=== PATIENT | male | born 1950 | race Caucasian/White ===

== ENCOUNTER 2017-04-29 22:34 | Emergency (ER) | payer OTHER, MEDICARE ==
[2017-04-29 22:50] VITALS: BP 128/71; PULSE 66; TEMP 97.7; BMI 25.7
--- NOTE | 2017-04-29 22:56 | PDOC ---
History of Present Illness - General Chief Complaint: Pain, Acute Stated Complaint: ABD PAIN Time Seen by Provider: 04/29/17 22:35 History Source: Patient Exam Limitations: No Limitations - History of Present Illness Initial Comments: 04/29/17 23:49 This is a 59-year-old male who is morbidly obese comes in complaining of abdominal pain. Patient describes abdominal pain as episodes of severe crampy lower abdominal pain. Patient said that when the pain comes it makes him feel like he has to have a bowel movement. Patient said he has had approximately 6 loose bowel movements but then took an Imodium and has not had any since then. Patient denies any nausea or vomiting. Patient denies any fevers or chills. Patient said that he also feels like he needs to urinate but is only able to urinate a small amount in spite of having drank a fair amount of water. PAST MEDICAL HISTORY: Hypertension, high cholesterol, BPH PAST SURGICAL HISTORY: no significant history FAMILY HISTORY: no pertinant history SOCIAL HISTORY: Pt lives with family and is employed. MEDICATIONS: reviewed ALLERGIES: As per nursing notes Review of Systems General: No fevers or chills, no weakness, no weight loss HEENT: No change in vision. No sore throat,. No ear pain CardioVascular: No chest pain or shortness of breath Respiratory:No cough, or wheezing. Gastrointestinal: no nausea, vomitting, diarrhea or constipation, No rectal bleeding, +abdominal pain Genitourinary: No dysuria, hematuria, or frequency Musculoskeletal: No joint or muscle pain or swelling Neurologic: No headache, vertigo, dizziness or loss of consciousness Psychiatric: nor depression Skin: No rashes or easy bruising Endocrine: no increased thirst or abnormal weight change Allergic: no skin or latex allergy All other systems reviewed and normal Exam: General: Well-nourished well-developed individual, no acute distress HEENT: Throat: Normal, tonsils normal, no erythema or exudate Neck: Supple, no meningeal signs, no lymphadenopathy Eyes::Pupils equal reactive and round, extraocular motion intact Chest: Nontender to palpation Cardiac: S1-S2 normal, regular rate and rhythm, no murmurs rubs or gallops Respiratory: Lungs clear to auscultation bilateral Abdomen: Soft, sl distended, normal bowel sounds, nontender to palpation diffusely Extremities: Warm, dry, no cyanosis, clubbing, or edema Skin: No rashes Neuro: Alert and oriented x3, nonfocal exam, grossly intact, normal gait Psych: Normal mood and affect Patient's CAT scan was unremarkable with the exception of a markedly dilated bladder with hydroureter and hydronephrosis. Blood work was otherwise unremarkable with normal kidney function. Assessment and plan: This is a 67-year-old male who comes in complaining of lower abdominal pain. Patient had a workup that revealed a markedly distended bladder with hydroureter and hydronephrosis. Patient had a Simpson placed with approximately 1800 mL of urine drained. Patient started on Cipro to prevent a urinary tract infection as he will have an indwelling Simpson and Simpson was put to his leg bag. Patient has an appointment with his primary care doctor in the morning. Past History - Past Medical History Allergies/Adverse Reactions: Allergies Allergy/AdvReac Type Severity Reaction Status Date / Time No Known Allergies Allergy Unverified 04/29/17 22:35 Home Medications: Ambulatory Orders Alendronate Na [Fosamax] 70 mg PO Q7D 04/29/17 Atorvastatin Ca [Lipitor] 20 mg PO HS 04/29/17 Bupropion HCl [Bupropion Xl] 375 mg PO DAILY 04/29/17 Diltiazem Cd [Cardizem Cd -] 240 mg PO DAILY 04/29/17 Lamotrigine 100 mg PO BID 04/29/17 Montelukast Na [Singulair -] 10 mg PO HS 04/29/17 Multivitamins [Tab-A-Vit -] 1 tab PO DAILY 04/29/17 Tamsulosin HCl [Flomax] 0.4 mg PO DAILY 04/29/17 Vit C/Vit E AC/Lut/Copper/Zinc [Preservision Softgel] 1 each PO DAILY 04/29/17 Zolpidem Tartrate [Ambien Cr] 12.5 mg PO HS 04/29/17 - Psycho/Social/Smoking Cessation Hx Suicidal Ideation: No Smoking History: Former smoker Have you smoked in the past 12 months: No Information on smoking cessation initiated: Yes *Physical Exam - Vital Signs Last Vital Signs Temp Pulse Resp BP Pulse Ox 97.7 F 66 16 128/71 97 04/29/17 22:46 04/29/17 22:46 04/29/17 22:46 04/29/17 22:46 04/29/17 22:46 ED Treatment Course - LABORATORY CBC & Chemistry Diagram: 04/30/17 00:05 04/30/17 00:05 *DC/Admit/Observation/Transfer Diagnosis at time of Disposition: Acute retention of urine Hydronephrosis Qualifiers: Hydronephrosis type: unspecified Qualified Code(s): N13.30 - Unspecified hydronephrosis - Discharge Dispostion Disposition: HOME Condition at time of disposition: Stable - Patient Instructions Additional Instructions: Leave the Simpson in place empty the leg bag as needed. Keep your appointment with Dr. Evans in the morning. Return to the emergency department immediately with ANY new, persistent or worsening symptoms. Continue any medications as previously prescribed by your physician. You should follow up with your primary doctor as soon as possible regarding today's emergency department visit. . Please make sure your doctor reviews the results of your emergency evaluation. Thank you for coming to the Emergency Department today for your care. It was a pleasure to see you today. Please note that your evaluation is INCOMPLETE until you follow-up with your doctor.
[2017-04-29] MEDS ORDERED: SIMETHICONE 80 MG TAB.CHEW (FP) PO STA (23:25)
[2017-04-29] MEDS ORDERED: HYOSCYAMINE SULFATE 0.125 MG *ODT PO ONE (23:26)
[2017-04-29] MEDS ORDERED: HYOSCYAMINE SULFATE 0.125 MG *ODT ONE (23:39)
[2017-04-29] MEDS ORDERED: SIMETHICONE 80 MG TAB.CHEW (FP) ONE (23:39)
[2017-04-30 01:28] LABS: BASOPHIL 0.7 % (0-2.0); MCH 29.9 pg (25.7-33.7); MCHC 32.7 g/dl (32.0-35.9); MEAN CELL VOLUME 91.4 fl (80-96); MEAN PLT VOLUME 9.2 fl (7.5-11.1); NEUTROPHILS 76.4 % (42.8-82.8); PLATELET COUNT 277 K/MM3 (134-434); RDW 14.1 % (11.9-15.9); WHITE BLOOD COUNT 12.1 K/mm3 (4.0-10.0)
[2017-04-30 01:32] LABS: URINE APPEARANCE CLEAR; URINE BILIRUBIN NEGATIVE (NEGATIVE); URINE BLOOD NEGATIVE (NEGATIVE); URINE COLOR STRAW; URINE GLUCOSE (UA) NEGATIVE (NEGATIVE); URINE KETONE NEGATIVE (NEGATIVE); URINE LEUK ESTERASE NEGATIVE (NEGATIVE); URINE NITRITE NEGATIVE (NEGATIVE); URINE PROTEIN NEGATIVE (NEGATIVE); URINE UROBILINOGEN NEGATIVE E.U./dl (0.2-1.0)
[2017-04-30 01:51] LABS: ALBUMIN 3.8 g/dl (3.4-5.0); ALK PHOS 79 U/L (45-117); ANION GAP 13 (8-16); BILIRUBIN,TOTAL 0.5 mg/dL (0.2-1.0); CALCIUM 9.6 mg/dL (8.5-10.1); CO2 25 mmol/L (21-32); CREATININE 0.9 mg/dL (0.7-1.3); GLUCOSE,RANDOM 86 mg/dL (74-106); SGPT/ALT 29 U/L (12-78); TOT PROT 6.3 g/dl (6.4-8.2)
[2017-04-30 01:52] LABS: SGOT/AST 19 U/L (15-37)
[2017-04-30] MEDS ORDERED: CIPROFLOXACIN 250 MG TABLET (RESTRICTED TO ID) PO ONE ×2 (02:17→02:26)
== END 2017-04-30 03:00 | disposition home or self-care (01) ==
LOC: FER 22:34
DX: R33.8 Other retention of urine (principal); N13.30 Unspecified hydronephrosis; Z87.891 Personal history of nicotine dependence; E66.01 Morbid (severe) obesity due to excess calories; Z68.25 Body mass index [BMI] 25.0-25.9, adult; I10 Essential (primary) hypertension; E78.00 Pure hypercholesterolemia, unspecified; N40.0 Benign prostatic hyperplasia without lower urinary tract symptoms
CPT/HCPCS: 36415; 71020-TC; 74020-TC; 74176-TC; 80053; 81003; 85025; 99284-25